=== PATIENT | male | born 1995 | race Caucasian/White ===

== ENCOUNTER 2020-09-16 03:08 | Emergency (ER) | payer SELFPAY ==
[2020-09-16 03:15] VITALS: BP 174/113; PULSE 98; RESP 18; TEMP 36.7; O2SAT 96; BMI 26.4
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
--- NOTE | 2020-09-16 03:27 | PC.NURSE ---
rigid c-collar placed during triage
[2020-09-16 03:58] VITALS: BP 156/109; PULSE 68; RESP 16; TEMP 36.6; O2SAT 97
[2020-09-16 04:10] VITALS: BP 156/108; PULSE 78; RESP 16; TEMP 36.7; O2SAT 96
--- NOTE | 2020-09-16 04:12 | PC.NURSE ---
Upon pt getting to room 15,pt is a/o x 4 answers all questions appropriatley but noted to have ETOH on board as per mother reports. Pt has strong peripheral pulses bilaterally. Pt is non compliant with staying in bed. Reminded to stay in same position until seen by physician and x rays are complete.
== END 2020-09-16 04:15 | disposition home or self-care (01) ==
PROVIDERS: Emergency Provider Emergency Medicine
DX: S13.9XXA Sprain of joints and ligaments of unspecified parts of neck, initial encounter (principal); V29.9XXA Motorcycle rider (driver) (passenger) injured in unspecified traffic accident, initial encounter
CPT/HCPCS: 70450; 71045; 72125; 72128; 99283

== ENCOUNTER 2021-05-17 13:02 | Inpatient (IN) | payer SELFPAY ==
[2021-05-17 13:08] VITALS: BP 156/99; PULSE 100; RESP 16; TEMP 36.3; O2SAT 99; BMI 26.4
--- NOTE | 2021-05-17 13:16 | W.ED.PSYCHS ---
HPI - Psych General: Chief Complaint: Psychiatric Symptoms Stated Complaint: SI MHE Time Seen by Provider: 05/17/21 13:15 Source: patient Mode of arrival: ambulatory Limitations: no limitations History of Present Illness: HPI Narrative: Patient is a nice 25-year-old male who presents to ED today along with his mother for concerns of suicidal ideations. Patient tells me he recently has lost everything . He states his girlfriend who he was living with in [place], [place] left him. 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 Patient tells me he feels completely hopeless. He states a few days ago he had a gun in his mouth contemplating whether to pull the trigger. Patient does have a history of depression. He states he was seen at [facility] recently and diagnosed with adjustment disorder. He is not currently taking any medications. Mother does state he's been treating with alcohol. He does report recent marijuana and methamphetamine use. MD complaint: suicidal ideation Onset (ago): day(s) Duration: constant History of same: Yes Relieving factors: none Exacerbating factors: alcohol and drug use Context: recent alcohol abuse, recent drug abuse and significant life stressor Associated psychiatric symptoms: depression and suicidal ideation Associated symptoms: Reports depression and suicidal ideation; Deny auditory hallucinations, visual hallucinations or homicidal ideation Treatments prior to arrival: none If self harm: admits thoughts of self harm and has acted on plan Review of Systems Const: Denies: fever(s) or chills Card: Denies: chest pain, palpitations, lightheadedness or syncope Resp: Denies: dyspnea GI: Denies: abdominal pain, nausea, vomiting or diarrhea Skin/Breast: Denies: rash Neuro: Denies: headache(s) Psych: Reports: depression, hopelessness, loss of interest and suicidal ideation; Denies: visual hallucinations, auditory hallucinations or homicidal ideation Physical Exam Const: COMMON NORMALS: no acute distress, patient oriented x3, alert and well nourished GENERAL APPEARANCE: cooperative and well kempt Resp: COMMON NORMALS: normal respiratory effort and clear to auscultation bilaterally AUSCULTATION: clear to auscultation bilaterally Cardio: COMMON NORMALS: regular rate and regular rhythm RATE: regular rate RHYTHM: regular rhythm Neuro: COMMON NORMALS: patient oriented x3 SENSORIUM/ORIENTATION: Yes alert Psych: COMMON NORMALS: mental status grossly normal, Normal thought process present, cooperative, speech normal, activity/motor behavior normal, denies hallucinations and denies homicidal ideation APPEARANCE: Yes grossly normal and Yes well kempt ATTITUDE: Yes calm ACTIVITY/MOTOR BEHAVIOR: Yes appropriate eye contact and No psychomotor agitation SPEECH: Yes normal speech MOOD & AFFECT: Yes tearful THOUGHT PROCESS: Normal thought process present THOUGHT CONTENT: Yes Suicidality present MEMORY/COGNITION: Yes memory grossly intact and Yes cognition grossly intact INSIGHT: Good insight present (Psych) JUDGEMENT: Good judgement present (Psych) Course Consultations: Consultation #1: Dr. Lee-accepts to NPU pend lab clearance Vital Signs: Vital signs: Vital Signs Temperature 97.4 F L 05/17/21 13:08 Pulse Rate 100 05/17/21 13:08 Respiratory Rate 16 05/17/21 13:08 Blood Pressure 156/99 05/17/21 13:08 Pulse Oximetry 99 05/17/21 13:08 MDM - Psych MDM Narrative: Medical decision making narrative: Patient voluntary with affidavit. Cleared medically for NPU. Dr. Lee will be accepting physician. Dr. Lagunas will place admit orders. Lab Data: Labs: Lab Results 05/17/21 05/17/21 13:36 13:36 WBC 6.1 10^3/uL 10^3/ uL (4.0-10.0) RBC 4.81 10^6/uL 10^6 /uL (4.1-5.3) Hgb 17.3 g/dL H g/dL (11.7-16.6) Hct 51.0 % % (42.0-52.0) MCV 106.0 fl H fl (80-94) MCH 36.0 pg H pg (28.0-34.0) MCHC 33.9 g/dL g/dL (30.0-36.0) RDW 12.8 % % (12.1-15.1) Plt Count 304 10^3/cmm 10^3 /cmm (130-400) MPV 9.1 fL fL (7.4-10.4) Neut % (Auto) 51.0 % % Lymph % (Auto) 35.4 % % Calvert % (Auto) 11.1 % % Eos % (Auto) 1.8 % % Baso % (Auto) 0.5 % % Neut # (Auto) 3.13 10^3/uL 10^3 /uL (1.8-7.7) Lymph # (Auto) 2.2 10^3/uL 10^3/ uL (0.8-4.8) Calvert # (Auto) 0.7 10^3/uL 10^3/ uL (0.2-0.9) Eos # (Auto) 0.1 10^3/uL 10^3/ uL (0.0-0.8) Baso # (Auto) 0.0 10^3/uL 10^3/ uL (0.0-0.1) Nucleated RBC % (a uto) 0 % % Nucleated RBCs # 0.0 /100WBC /100W BC Sodium 140 mmol/L mmol/L (136-145) Potassium 4.5 mmol/L mmol/L (3.5-5.1) Chloride 100 mmol/L mmol/L (98-107) Carbon Dioxide 24 mmol/L mmol/L (22-29) Anion Gap 20.5 H (5-19) BUN 8 mg/dL mg/dL (6-20) Creatinine 0.8 mg/dL mg/dL (0.7-1.2) GFR Calculation 116.0 mL/min mL/m in (90-130) Glucose 90 mg/dL mg/dL (65-115) Calculated Osmolal ity 288 mOsm/kg mOsm/ kg (285-295) Calcium 8.9 mg/dL mg/dL (8.5-10.5) Total Bilirubin 0.3 mg/dL mg/dL (0.15-1.2) AST 59 U/L H U/L (0-40) ALT 63 U/L H U/L (0-41) Alkaline Phosphata se 80 IU/L IU/L (40-130) Total Protein 7.9 g/dL g/dL (6.6-8.7) Albumin 4.9 g/dL g/dL (3.5-5.2) Globulin 3.0 g/dL g/dL (1.3-4.6) Salicylates < 0.3 mg/dL L mg/ dL (3-10) Acetaminophen < 5.0 ug/mL L ug/ mL (10-30) Ethyl Alcohol 176 mg/dL H mg/dL (0-10) Discharge Plan Discharge Patient Disposition: Admitted As Inpatient Clinical Impression: Suicidal ideation, Polysubstance abuse Condition: Stable Coding Level of Care Code ED Engineering Aid for Krystiang Fwd Exam Expanded Problem Focused
[2021-05-17 13:46] LABS: Basophils % 0.5 %; Eosinophils # 0.1 10^3/uL (0.0-0.8); Eosinophils % 1.8 %; Hemoglobin 17.3 g/dL (11.7-16.6); Lymphocytes # 2.2 10^3/uL (0.8-4.8); Lymphocytes % 35.4 %; Mean Corpuscular HGB Conc 33.9 g/dL (30.0-36.0); Mean Platelet Volume 9.1 fL (7.4-10.4); Monocytes # 0.7 10^3/uL (0.2-0.9); Monocytes % 11.1 %; Neutrophils # 3.13 10^3/uL (1.8-7.7); Nucleated Red Blood Cells % 0 %; Platelet Count 304 10^3/cmm (130-400); Red Blood Count 4.81 10^6/uL (4.1-5.3); Red Cell Distribution Width 12.8 % (12.1-15.1); White Blood Count 6.1 10^3/uL (4.0-10.0)
[2021-05-17 14:14] LABS: Alanine Aminotransferase 63 U/L (0-41); Albumin Level 4.9 g/dL (3.5-5.2); Alcohol Level 176 mg/dL (0-10); Alkaline Phosphatase 80 IU/L (40-130); Anion Gap 20.5 (5-19); Aspartate Amino Transferase 59 U/L (0-40); Blood Urea Nitrogen 8 mg/dL (6-20); Calcium 8.9 mg/dL (8.5-10.5); Carbon Dioxide 24 mmol/L (22-29); Chloride 100 mmol/L (98-107); Glucose 90 mg/dL (65-115); Osmolality Calculated 288 mOsm/kg (285-295); Potassium 4.5 mmol/L (3.5-5.1); Sodium 140 mmol/L (136-145); Total Bilirubin 0.3 mg/dL (0.15-1.2); Total Protein 7.9 g/dL (6.6-8.7)
[2021-05-17 14:18] LABS: Acetaminophen < 5.0 ug/mL (10-30); Salicylate < 0.3 mg/dL (3-10)
[2021-05-17 14:24] VITALS: BP 159/91; PULSE 98; RESP 17; TEMP 37.1; O2SAT 99
[2021-05-17 14:38] LABS: Amphetamines Screen Urine Negative (Negative); Barbiturates Screen Urine Negative (Negative); Benzodiazepines Screen Urine Negative (Negative); Cocaine Screen Urine Negative (Negative); Opiate Screen Urine Negative (Negative); PCP Screen Urine Negative (Negative); THC Screen Urine Positive (Negative)
[2021-05-17 15:20] VITALS: PULSE 98; RESP 17; O2SAT 99
[2021-05-17 20:28] VITALS: BP 144/98; PULSE 76; RESP 17; TEMP 37.1; O2SAT 99
[2021-05-17] MEDS: trazodone 50 mg Tablet PO (21:20)
[2021-05-17] MEDS: hyDROXYzine 25 mg Capsule 50 MG PO (21:21)
--- NOTE | 2021-05-17 22:05 | PHA.FALL ---
A Pharmacy Consult Was Conducted For Shirley Motta Due To: Booker Fall Scale Risk Level: No Fall Risk On 05/17/21 20:00 And A Medication Fall Risk Score Greater Than 10. The Recommendations Are As Follows:On 05/17/2199 a fall risk assessment is conducted with these recommendations: This patient is on several drugs which alone or in combination may lead to an increased risk of falls due to drowsiness and/or postural hypotension: benztropine, diphenhydramine, haloperidol, hydroxyzine, lorazepam, olanzapine, trazodone. It is recommended that the patient be observed while walking, standing, and especially when arising from the seated or lying position. It is further recommended that these drugs be spaced as far apart from each other as possible and the need for continued use be regularly evaluated. GEOVANNI Novoa.
--- NOTE | 2021-05-17 22:38 | PC.NURSE ---
Patient requested something for insomnia and anxiety. Vistaril and Trazadone given. Meds were effective.
[2021-05-18 05:58] VITALS: BP 144/98; PULSE 76; RESP 17; TEMP 37.1; O2SAT 99
[2021-05-18 06:30] VITALS: BP 131/83; PULSE 71; RESP 20; TEMP 36.8; O2SAT 97
[2021-05-18] MEDS: nicotine 21 mg Patch 1 PATCH TRANSDERMA (09:14)
[2021-05-18] MEDS: folic acid 1 mg Tablet PO (09:14)
[2021-05-18] MEDS: multivitamin therapeutic Tablet 1 TAB PO (09:14)
[2021-05-18] MEDS: thiamine 100 mg Tablet PO (09:14)
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
[2021-05-18 14:00] VITALS: BP 148/92; PULSE 61; RESP 17; TEMP 37.1; O2SAT 99
[2021-05-18] MEDS: nicotine 2 mg Gum BUCCAL ×2 (15:10→17:21)
--- NOTE | 2021-05-18 15:11 | PC.NURSE ---
pt removed nicotine patch 2 hours ago stating that he wanted to switch to the gum. pt was just given nicorette gum at pt request.
[2021-05-18 20:25] VITALS: BP 155/97; PULSE 67; RESP 17; O2SAT 100
[2021-05-18] MEDS: trazodone 50 mg Tablet PO (20:27)
--- NOTE | 2021-05-19 01:43 | PC.NURSE ---
PRN Administration: Patient c/o of having trouble getting to sleep at night. PRN trazodone PO given as ordered with noted effectiveness.
[2021-05-19 06:00] VITALS: BP 139/94; PULSE 67; RESP 18; TEMP 36.4; O2SAT 99
[2021-05-19] MEDS: nicotine 2 mg Gum BUCCAL ×3 (06:00→18:53)
[2021-05-19] MEDS: nicotine 21 mg Patch 1 PATCH TRANSDERMA (06:00)
[2021-05-19] MEDS: folic acid 1 mg Tablet PO (09:14)
[2021-05-19] MEDS: multivitamin therapeutic Tablet 1 TAB PO (09:14)
[2021-05-19] MEDS: fluoxetine 20 mg Capsule PO (09:14)
[2021-05-19] MEDS: thiamine 100 mg Tablet PO (09:14)
--- NOTE | 2021-05-19 11:18 | P.NPUPN_ITS ---
Subjective NPU Subjective: Interval history: He says that he thinks that the trazodone that he has gotten the last 2 nights has helped his mood. It did not help with sleep last night. It took him a couple of hours to go to sleep and he only slept for about 4 hours. He would like to increase the dose. He took his first dose of Prozac this morning. He said that he was grumpy when he got up and talking with the other patients as recently thus far. Mental Status Exam MSE Comments: This is a 25-year-old single male who appears his stated age and is in no acute distress. He is pleasant and cooperative with the evaluation. He is in hospital scrubs with good eye contact and fair grooming. psychomotor activity is normal but better. Speech is at a regular rate and rhythm, normal volume, good articulation, not pressured. Alert, oriented X3 Attention and concentration good. Memory is intact Mood is depressed but better. Affect is mildly dysphoric. Thought process is logical and goal-directed. Thought content: Denies auditory and visual hallucinations. No delusions or paranoia are noted. No current suicidal ideation, and no homicidal ideation. Fund of knowledge is average.. Insight and judgment appear to be good. Impulse control is to be good. Cognition: Patient Appearance: Appropriate Level of Consciousness: Awake, Alert, Appropriate and Follows Commands Patient Cognition Impaired: No Ability to Follow Directions: Excellent Patient Orientation (long list): Person, Place, Time and Name Comprehension Ability: No Impairment Hallucination Type: None Delusion Description: Not Present Thought Process: Appropriate Affect: Affect Description: Calm Depressive Symptoms: Crying Spells and Hopelessness Behavior: Patient Behavior: Cooperative Speech Pattern: Clear Vitals/I&O/Wt Last Vital Signs Temp 97.5 F L 05/19/21 06:00 Pulse 67 05/19/21 06:00 Resp 18 05/19/21 06:00 BP 139/94 05/19/21 06:00 Pulse Ox 99 05/19/21 06:00 Weight last 48 hrs Weight 90.718 kg Data NPU : 05/17/21 13:36 05/17/21 13:36 A&P Assessment and plan (1) Depression: Status: Acute Qualifiers: Depression Type: major depressive disorder Major depression recurrence: recurrent Active/Remission status: currently active Major depression episode severity: severe Psychotic features: without psychotic features Qualified Code(s): F33.2 - Major depressive disorder, recurrent severe without psychotic features (2) Suicidal ideation: Status: Acute Additional A&P Information This is a 25-year-old male who has had some depression in the past but had a very difficult year and was recently suicidal and put a gun in his mouth. Plan: 1. Prozac 20 mg daily. Increase trazodone to 100 mg at bedtime 2. Continue every 15 minute checks for safety. 3. Encourage individual, group and milieu therapies. 4. Encourage sober living treatment after discharge at the highest level of care to which he is willing to commit. 5. We will monitor for safety for himself in the community prior to discharge. Involuntary Hold Information 96 Hour Hold: 96 Hour Involuntary Admission: No Attestations NPU Medical Necessity Statement*: Inpatient hospitalization is medically necessary and the clinically appropriate intervention at this time. We will initiate medications and make changes as indicated. Coding Level of Care Code Acute Swimming Pool Cleaner for Javad Tenorio Diagnoses Depression F33.2 Depression Type: major depressive disorder Major depression recurrence: recurrent Active/Remission status: currently active Major depression episode severity: severe Psychotic features: without psychotic features Suicidal ideation R45.85
[2021-05-19 14:00] VITALS: BP 150/94; PULSE 81; RESP 17; TEMP 36.9; O2SAT 100
[2021-05-19 20:10] VITALS: BP 160/112; PULSE 79; RESP 17; O2SAT 99
[2021-05-19] MEDS: trazodone 50 mg Tablet 100 MG PO (20:21)
[2021-05-19] MEDS: OLANZapine 5 mg ODT PO (22:39)
[2021-05-20] MEDS: trazodone 100 mg Tablet PO (00:38)
--- NOTE | 2021-05-20 04:29 | PC.NURSE ---
Patient took his scheduled trazodone 100mg po for sleep. This was not effective. Zyprexa 5 mg po given. Patient remained awake and unable to sleep. Dr Lee gave a one time order for Trazodone 100mg po. This was given to the patient and it was effective.
[2021-05-20 05:55] VITALS: BMI 26.4
[2021-05-20 06:00] VITALS: BP 108/79; PULSE 87; RESP 20; TEMP 37.1; O2SAT 96
[2021-05-20] MEDS: multivitamin therapeutic Tablet 1 TAB PO (08:44)
[2021-05-20] MEDS: thiamine 100 mg Tablet PO (08:44)
[2021-05-20] MEDS: fluoxetine 20 mg Capsule PO (08:44)
[2021-05-20] MEDS: folic acid 1 mg Tablet PO (08:45)
[2021-05-20] MEDS: nicotine 21 mg Patch 1 PATCH TRANSDERMA (08:58)
--- NOTE | 2021-05-20 12:18 | W.PM.NPUPNS ---
Subjective NPU Subjective: Interval history: He had difficulty sleeping last night with trazodone 100 mg. He said that before yesterday about increasing it to 200 mg but I forgot to answer it. We talked more about his anxiety. He has all the classic symptoms of anxiety disorder. His mind is frequently going very fast and multitasking. He has difficulty sleeping and that is one of the reasons that he used alcohol to help him sleep. He is irritable at times. He is a little obsessive compulsive. He really likes to work and stay busy. He has difficulty concentrating because things do not stick and he has to read things over again frequently. His mother has anxiety and depression. His father is an alcoholic. His grandfather is also an alcoholic. 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 His mother takes Prozac and it helps her. He might talk to her about the dose. He was told that he would probably need 80 mg before it would be effective for all of the symptoms. Mental Status Exam MSE Comments: This is a 25-year-old single male who appears his stated age and is in no acute distress. He is pleasant and cooperative with the evaluation. He is in hospital scrubs with good eye contact and fair grooming. psychomotor activity is normal but better. Speech is at a regular rate and rhythm, normal volume, good articulation, not pressured. Alert, oriented X3 Attention and concentration good. Memory is intact Mood is depressed but better. Affect is mildly dysphoric. Thought process is logical and goal-directed. Thought content: Denies auditory and visual hallucinations. No delusions or paranoia are noted. No current suicidal ideation, and no homicidal ideation. Fund of knowledge is average.. Insight and judgment appear to be good. Impulse control is to be good. Cognition: Patient Appearance: Appropriate Level of Consciousness: Awake, Alert, Appropriate and Follows Commands Patient Cognition Impaired: No Ability to Follow Directions: Excellent Patient Orientation (long list): Person, Place, Time and Name Comprehension Ability: No Impairment Hallucination Type: None Delusion Description: Not Present Thought Process: Appropriate Affect: Affect Description: Calm Depressive Symptoms: Crying Spells and Hopelessness Behavior: Patient Behavior: Cooperative Speech Pattern: Clear Vitals/I&O/Wt Last Vital Signs Temp 98.7 F 05/20/21 06:00 Pulse 87 05/20/21 06:00 Resp 20 H 05/20/21 06:00 BP 108/79 05/20/21 06:00 Pulse Ox 96 05/20/21 06:00 Weight last 48 hrs Weight 90.718 kg Data NPU : 05/17/21 13:36 05/17/21 13:36 A&P Assessment and plan (1) Depression: Status: Acute Qualifiers: Depression Type: major depressive disorder Major depression recurrence: recurrent Active/Remission status: currently active Major depression episode severity: severe Psychotic features: without psychotic features Qualified Code(s): F33.2 - Major depressive disorder, recurrent severe without psychotic features (2) Suicidal ideation: Status: Acute Additional A&P Information This is a 25-year-old male who has had some depression in the past but had a very difficult year and was recently suicidal and put a gun in his mouth. Plan: 1. Increase Prozac 40 mg daily. Increase trazodone to 200 mg at bedtime 2. Continue every 15 minute checks for safety. 3. Encourage individual, group and milieu therapies. 4. Encourage sober living treatment after discharge at the highest level of care to which he is willing to commit. 5. We will monitor for safety for himself in the community prior to discharge. Involuntary Hold Information 96 Hour Hold: 96 Hour Involuntary Admission: No Attestations NPU Medical Necessity Statement*: Inpatient hospitalization is medically necessary and the clinically appropriate intervention at this time. We will initiate medications and make changes as indicated. Coding Level of Care Code Acute Finished Yarn Examiner for Javad Tenorio Diagnoses Depression F33.2 Depression Type: major depressive disorder Major depression recurrence: recurrent Active/Remission status: currently active Major depression episode severity: severe Psychotic features: without psychotic features Suicidal ideation R45.851
[2021-05-20 14:00] VITALS: BP 129/87; PULSE 70; RESP 20; TEMP 36.9; O2SAT 97
[2021-05-20] MEDS: nicotine 2 mg Gum BUCCAL ×2 (14:40→17:05)
[2021-05-20] MEDS: trazodone 50 mg Tablet 200 MG PO (20:08)
[2021-05-20 20:19] VITALS: BP 138/87; PULSE 63; RESP 17; TEMP 36.6; O2SAT 100
[2021-05-21 06:00] VITALS: BP 119/75; PULSE 69; RESP 20; TEMP 36.4; O2SAT 98
[2021-05-21] MEDS: nicotine 2 mg Gum BUCCAL (06:08)
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
[2021-05-21 07:50] VITALS: BP 119/75; PULSE 69; RESP 20; TEMP 36.4; O2SAT 98
[2021-05-21] MEDS: folic acid 1 mg Tablet PO (08:29)
[2021-05-21] MEDS: fluoxetine 20 mg Capsule 40 MG PO (08:30)
[2021-05-21] MEDS: thiamine 100 mg Tablet PO (08:31)
[2021-05-21] MEDS: multivitamin therapeutic Tablet 1 TAB PO (08:31)
== END 2021-05-21 08:23 | disposition home or self-care (01) | DRG 885 ==
LOC: ER 14:01 → NP 15:01
PROVIDERS: Admitting Provider Psychiatry & Neurology Psychiatry; Emergency Provider Physician Assistant; Visit Provider Psychiatry & Neurology Psychiatry
DX: F33.2 Major depressive disorder, recurrent severe without psychotic features (principal); R45.851 Suicidal ideations; F43.20 Adjustment disorder, unspecified; F10.10 Alcohol abuse, uncomplicated; Z81.8 Family history of other mental and behavioral disorders
CPT/HCPCS: 36415; 80053; 80306; 80307; 85025; 96372; 97150; 97165; 99285; J3411

== ENCOUNTER 2022-03-01 08:37 | Emergency (ER) | payer SELFPAY ==
[2022-03-01 08:43] VITALS: BP 147/90; PULSE 79; RESP 18; TEMP 36.6; O2SAT 99
--- NOTE | 2022-03-01 08:46 | XR_ITS ---
WS: [id number] Exam: XR wrist RT w scaphoid [id number] Date/Time of Exam: 03/01/2022 8:46 AM Reason For Exam: pain There are no fractures, soft tissue swelling, or unusual calcifications. The wrist shows normal bony alignment. There is no irregularity of the bony architecture. XR/XR wrist RT w scaphoid [id number] IMPRESSION: Negative right wrist.
--- NOTE | 2022-03-01 08:50 | ED_ITS ---
HPI - Extremity Problem General: Chief complaint: Extremity Injury, Upper Stated complaint: needs an xray Time Seen by Provider: 03/01/22 08:37 Source: patient Mode of arrival: ambulatory History of Present Illness: 26-year-old male presents to the emergency room with complaints of left wrist pain. 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 He denies any other injury he has pain essentially at the metatarsal carpal carpal joints. He has no pain in the anatomical snuffbox he is able to move the hand completely has normal pulses sensation and range of motion in the fingers and hands but limited range of motion the wrist due to pain denies any other injury did not strike his head there is no loss consciousness no neck pain. MD Complaint: extremity pain Onset (ago): minute(s) Pain Consistency: constant Location: left (Rest) Quality: sharp Radiation: none Relieving factors: immobilization Exacerbating factors: range of motion and palpation Associated symptoms: Deny chest pain or rash Review of Systems ENMT: Denies: throat pain, ear or mastoid pain, nasal discharge or nasal congestion Card: Denies: chest pain, edema, dyspnea on exertion or orthopnea Resp: Denies: dyspnea, productive cough or non-productive cough GI: Denies: abdominal pain, nausea, vomiting, hematemesis, coffee ground emesis, diarrhea, constipation, bloating, hematochezia or melena : Denies: flank pain, dysuria, urinary frequency or urinary urgency Skin/Breast: Denies: rash or pruritus Physical Exam Const: COMMON NORMALS: no acute distress GENERAL APPEARANCE: cooperative and comfortable ORIENTATION/CONSCIOUSNESS: Yes awake, Yes oriented to person, Yes oriented to place and Yes oriented to time HENMT: COMMON NORMALS: normocephalic, atraumatic and hearing grossly normal bilaterally HEAD & SCALP: normocephalic and atraumatic Resp: COMMON NORMALS: normal respiratory effort, No retractions, No use of accessory muscles and clear to auscultation bilaterally AUSCULTATION: clear to auscultation bilaterally Cardio: COMMON NORMALS: regular rate, regular rhythm and No murmurs present (Cardio) RATE: regular rate RHYTHM: regular rhythm Extremity: OTHER: Discomfort with palpation over the metacarpal carpal joints particularly second and third. No evidence of swelling no deformity no ecchymosis no laceration Neuro: SENSORIUM/ORIENTATION: Yes oriented to person, Yes oriented to place and Yes oriented to time Skin: COMMON NORMALS: no rashes or lesions noted GENERAL SKIN EXAM: no rashes or lesions noted Course Vital Signs: Vital signs: Vital Signs Temperature 97.9 F 03/01/22 08:43 Pulse Rate 79 03/01/22 08:43 Respiratory Rate 18 03/01/22 08:43 Blood Pressure 147/90 03/01/22 08:43 Pulse Oximetry 99 03/01/22 08:43 Oxygen Delivery Me thod 03/01/22 08:43 MDM - Extremity (Nontraumatic) Medical Decision Making X-rays negative. Anti-inflammatories rest ice recheck with primary care if not improving. Medical Records I reviewed the patient's medical records. Lab Data I reviewed the patient's lab results. X-ray results Radiology Impressions Wrist X-Ray 03/01/22 08:46 IMPRESSION: Negative right wrist. Discharge Plan Discharge Patient Disposition: Home Clinical Impression: Sprain and strain of wrist Condition: Stable Prescriptions: New diclofenac sodium 75 mg tablet,delayed release (DR/EC) 75 mg PO Q12H PRN (Reason: pain) Qty: 20 0RF Discharge Orders: Discharge ED (Routine); Ordered 03/01/22 Ordered By: Avery Elkins Discharge Diet: Usual diet Discharge Activity: Increase activity as tolerated Patient Instructions: Opioid Safety, Pain Management Activity Restrictions/Additional Instructions: Ice anti-inflammatories as needed if not improving next few days recheck with your primary care doctor. Coding Level of Care Code ED Chief Design Engineer for Javad Tenorio
[2022-03-01] MEDS: ketorolac 60 mg/2 mL INJ IM (09:09)
== END 2022-03-01 09:42 | disposition home or self-care (01) ==
PROVIDERS: Emergency Provider Family Medicine
DX: S63.501A Unspecified sprain of right wrist, initial encounter (principal); S66.911A Strain of unspecified muscle, fascia and tendon at wrist and hand level, right hand, initial encounter; W14.XXXA Fall from tree, initial encounter
CPT/HCPCS: 73110; 96372; 99284; J1885